=== PATIENT | male | born 1995 | race Caucasian/White ===

== ENCOUNTER 2024-04-06 15:08 | Observation (INO) | payer MEDICAID, SELFPAY ==
[2024-04-06 15:09] VITALS: BP 117/83; PULSE 124; RESP 20; TEMP 35.9; O2SAT 98; BMI 23.4
--- NOTE | 2024-04-06 15:16 | EDS_ITS ---
HPI History of Present Illness Chief Complaint: Substance Abuse Informant: patient Onset/Context/Timing Onset: - (Years of alcohol abuse and methamphetamine abuse.) Context: Gradual Onset Timing: Continuous Current Severity: Moderate Maximum Severity: Moderate Narrative Narrative: 28-year-old male no seen past medical history other than substance abuse. He has never gone through detox before. He drinks 12-24 beers a day. And is using methamphetamine. Denies any IV drug abuse No recent illness. Occasionally has nausea and vomiting. Prior similar symptoms: Yes Recent Illness/Hospitalization: No PFSH PFS Medical History Tobacco use Methamphetamine abuse Alcohol abuse Anxiety and depression Home Medications ?Medication ?Instructions ?Recorded ?Last Taken ?Type ibuprofen 200 mg tablet (Advil) 200 mg PO Q6H PRN headache 04/06/24 Unknown History Allergy/AdvReac Type Severity Reaction Status Date / Time No Known Allergies Allergy Verified 04/06/24 15:09 Family History (Updated 04/06/24 @ 16:[address] Stephanie Alcantar MD) Grandfather Alcohol abuse Maternal grandfather. Alcoholic cirrhosis Grandmother Cancer Maternal grandmother, unclear type. Mother No problems noted. Father No problems noted. Surgical History (Updated 04/06/24 @ 16:[address] Stephanie Alcantar MD) History of dental surgery Social History (Updated 04/06/24 @ 16:[address] Stephanie Alcantar MD) household members: family Smoking Status: Current every day smoker tobacco type: cigarettes Smoking packs per day: 0.75 Smoking cigarettes per day: 15.0 alcohol intake: current alcohol intake frequency: 3 or more drinks per day Alcohol type: beer and hard liquor details: 15-25 beers daily, 1/2 bottle fireball daily. substance use type: marijuana, methamphetamine and other details: Snorts, smokes meth. ROS ROS ED ROS Narrative Intermittent nausea and vomiting. Review of Systems ROS Unobtainable: Denies due to encephalopathy Constitutional Constitutional ED: Denies chills or fever(s) Eyes Eyes: Denies blurry vision ENT ENT ED: Denies ear pain Cardiovascular Cardiovascular: Denies chest pain or palpitations Respiratory/Chest Respiratory/Chest: Denies cough, dyspnea or dyspnea on exertion Gastrointestinal Gastrointestinal: Reports nausea and vomiting; Denies abdominal pain, constipation, diarrhea or melena Genitourinary Genitourinary ED: Denies dysuria Musculoskeletal Musculoskeletal: Denies arthralgias or back pain Integumentary Denies abscess Neurologic Neurologic: Denies headache(s) Psychiatric Psychiatric: Denies anxiety or depression Endocrine Endocrinology: Denies cold intolerance Hematologic/Lymphatic Hematologic/Lymphatic: Denies easy bleeding, easy bruising or lymphadenopathy Allergic/Immunologic Allergic/Immunologic ED: Denies mouth swelling, tongue swelling or urticaria EXAM Physical Exam Narrative Exam Narrative: Well-appearing 28-year-old male vital signs stable afebrile. H EENT exam unremarkable. Neck nontender. Lungs clear to auscultation. Heart regular rhythm rate about 110 no murmur. Abdomen soft nontender. Normal bowel sounds no peritoneal signs. Back nontender. Neurologically patient is awake alert answering questions following commands. Benign exam. Medically cleared. Const Vital Signs: 04/06/24 15:09 Temperature 96.7 F L Temperature Source Temporal Pulse Rate 124 H Respiratory Rate 20 H Blood Pressure 117/83 H Blood Pressure Mean 94 Pulse Ox 98 Oxygen Delivery Method Room Air Positive well nourished and well developed; Negative for obese, cachectic, contractures or unkempt General Appearance ED: well developed and NAD; Negative for unkempt, cachectic, contractures or pallor Nutritional Appearance: Negative for cachectic or obese HEENT Reports moist mucous membranes; Denies dry mucous membranes atraumatic; Negative for trauma or tenderness Mouth ED: No dry mucous membranes Mouth: No dry mucous membranes Eyes PERRL and EOMs intact bilaterally General Eye ED: Negative for pale conjunctiva or scleral icterus Neck no lymphadenopathy, supple and no JVD Thyroid: Negative for tender or other Lymph Lymphatic: no lymphadenopathy noted Chest Wall inspection of chest normal and palpation of chest normal Chest: Negative for other Resp normal respiratory effort and clear to auscultation bilaterally Effort and Inspection: Negative for retractions or pain with movement Auscultation: Negative for rales, rhonchi or wheezes Cardio regular rhythm, S1 normal heart sound, S2 normal heart sound and no murmurs; Negative for regular rate Rate: tachycardic Rhythm: Negative for abnormal rhythm Bruits: Negative for other GI soft to palpation, non-tender, non-distended and no masses Inspection: Negative for abdominal distention Palpation: Negative for tender or guarding Back/Spine no CVA tenderness General Back: Negative for CVA tenderness Cervical Spine: Negative for cervical spine tenderness Thoracic Spine / Upper Back: Negative for thoracic spinal tenderness Lumbar Spine / Lower Back: Negative for lumbar spinal tenderness Coccyx: Negative for swelling Extremity General Extremety ED: Negative for edema or tenderness General Extremity: Negative for edema Neuro oriented x3 and CN's II-XII intact bilaterally Sensorium / Orientation: alert, oriented to person, oriented to place and oriented to time; Negative for confused, lethargic or stuporous Speech: speech normal Motor Exam: strength 5/5 throughout Psych mental status grossly normal and thought process normal Appearance: Negative for unkempt Attitude: No belligerent, No agitated and No aggressive Mood & Affect: Negative for depressed, anxious or tearful Skin General Skin Exam: Negative for jaundice or pallor Lesions: no lesions Rashes: no rashes MDM MDM MDM Narrative Medical decision making narrative: 28-year-old male methamphetamine and alcohol abuse requesting detox. Medically is cleared. Speak to the hospitalist for admission to the detox unit. History & Record Review Discussion w/independent historian: Patient Lab Data Attestation: I reviewed the patient's lab results. Lab results narrative: Chemistries unremarkable. Liver enzymes unremarkable. Alcohol level 59. Tox screen and CBC pending. Is a be evaluated by the hospitalist. Discharge Plan Dx/Rx/DC Orders Clinical Impression: Alcohol abuse, Methamphetamine abuse, Desire for detoxification Disposition Disposition: Acute Care Hospital [facility]
--- NOTE | 2024-04-06 15:49 | PCM.HP.STD ---
HPI - General General Date of Admission: 04/06/24 Date of Service: 04/06/24 Chief Complaint: EtOH withdrawal. HPI Narrative The patient is a 28 y/o M w/ PMHx: Untreated Anxiety and Depression, EtOH abuse (12-24 beers daily, occasional fireball 1/2 bottle), Polysubstance abuse (Methamphetamine) who presents to the [facility] on 04/06/24 w/ noted mild acute EtOH withdrawal starting, onset starting in the late afternoon on day of presentation following last EtOH intake earlier in the day and a beer prior to presentation. He is currently tachycardic with mild nausea, notes occasional emesis, mildly tremulous. He notes normally he would have drank more but did decrease his level today. When patient uses methamphetamine he notes snorting or smoking often daily. He also notes usage of cannabis ingested and smoked. He was clean from methamphetamine 06/02/21 and ~ 6 months following started drinking EtOH which became more heavy and has been since. He unforutnately ~ 1 year and 8 months following his clean status started using methamphetamine again. Patient interested in attaining sober status. In the ED work-up included T96.7, heart rate 124, BP 117/83, respiratory rate 20, 98% on room air, pending CBC, CMP, ethyl alcohol level and urine drug screen upon requested evaluation of patient. [facility] Medical History Tobacco use Methamphetamine abuse Alcohol abuse Anxiety and depression Home Medications ?Medication ?Instructions ?Recorded ?Last Taken ?Type ibuprofen 200 mg tablet (Advil) 200 mg PO Q6H PRN headache 04/06/24 Unknown History Allergy/AdvReac Type Severity Reaction Status Date / Time No Known Allergies Allergy Verified 04/06/24 15:09 Family History (Updated 04/06/24 @ 16:[address] Stephanie Alcantar MD) Grandfather Alcohol abuse Maternal grandfather. Alcoholic cirrhosis Grandmother Cancer Maternal grandmother, unclear type. Mother No problems noted. Father No problems noted. Surgical History (Updated 04/06/24 @ 16:[address] Stephanie Alcantar MD) History of dental surgery Social History (Updated 04/06/24 @ 16:[address] Stephanie Alcantar MD) household members: family Smoking Status: Current every day smoker tobacco type: cigarettes Smoking packs per day: 0.75 Smoking cigarettes per day: 15.0 alcohol intake: current alcohol intake frequency: 3 or more drinks per day Alcohol type: beer and hard liquor details: 15-25 beers daily, 1/2 bottle fireball daily. substance use type: marijuana, methamphetamine and other details: Snorts, smokes meth. ROS ROS Narrative Admission Review of Systems: CONSTITUTIONAL: No weight loss, fever, chills, + weakness or fatigue. HEENT: Eyes: No visual loss, blurred vision, double vision or yellow sclerae. Ears, Nose, Throat: No hearing loss, sneezing, congestion, runny nose or sore throat. SKIN: No rash or itching, lesions, wounds. CARDIOVASCULAR: No chest pain, chest pressure or chest discomfort, palpitations, edema, orthopnea, syncopal events. RESPIRATORY: No shortness of breath, cough or sputum, wheezing, hemoptysis. GASTROINTESTINAL: + Nausea with bouts of emesis during withdrawal. No diarrhea, abdominal pain, melena, BRBPR. GENITOURINARY: No dysuria, frequency, urgency or retention. NEUROLOGICAL: + Mild tremors. No headache, dizziness, syncope, paralysis, ataxia, numbness or tingling in the extremities, focal weakness, change in bowel or bladder control, seizure. MUSCULOSKELETAL: No muscle, back pain, joint pain or stiffness. HEMATOLOGIC: No anemia, bleeding or bruising. LYMPHATICS: No enlarged nodes. No history of splenectomy. PSYCHIATRIC: + History of anxiety and depression. ENDOCRINOLOGIC: No reports of sweating, cold or heat intolerance. No polyuria or polydipsia. ALLERGIES: No history of asthma, hives, eczema or rhinitis. Vital Signs Vital Signs Vital Signs: 04/06/24 15:09 Temperature 96.7 F L Temperature Source Temporal Pulse Rate 124 H Respiratory Rate 20 H Blood Pressure 117/83 H Blood Pressure Mean 94 Pulse Ox 98 Oxygen Delivery Method Room Air Weight Weight: 163 lb 8 oz Body Mass Index (BMI) 23.4 Physical Exam Narrative Physical Examination: General: Awake, alert, oriented x 3 and cooperative, seated upright in the ED bed, fatigued appearing. Skin: Normal color, normal turgor, no icterus, no cyanosis except occasional abrasion. HEENT: AT/NC, EOMI, PERRLA, moderately dry MM, no carotid bruits or JVD noted. Lungs: CTA bilaterally, moderate effort, mild decrease BL bases, no rales, ronchi or wheezing. Heart: Tachycardic with regular rhythm; no gallop, rub audible. Abdomen: Soft, NTTP, ND, mildly hyperactive BS, no appreciated HSM. Extremities: No cyanosis, clubbing, or edema. Neurological: Patient awake, alert, oriented as noted, cognitive function intact; pupils equally reactive to light and accommodation, cranial nerves grossly normal, moving all 4 extremities, no focal deficits, strength preserved, mildly tremulous. Psychiatric: Affect appears fatigued, no acute evidence of depressive or anxiety feelings but does admit to underlying history with no treatment previously. Results Lab / Micro Data 04/06/24 16:15 04/06/24 16:05 Assessment & Plan Assessment/Plan (1) Desire for detoxification: PLAN: Plan The patient is a 28 y/o M w/ PMHx: Untreated Anxiety and Depression, EtOH abuse (12-24 beers daily, occasional fireball 1/2 bottle), Polysubstance abuse (Methamphetamine) who presents to the [facility] on 04/06/24 w/ noted mild acute EtOH withdrawal starting, onset starting in the late afternoon on day of presentation following last EtOH intake earlier in the day and a beer prior to presentation. #1. Acute EtOH Withdrawal: Will admit to MS, routine labs obtained in the ED upon presentation and pending upon evaluation. Given interest in sobriety, will initiate and continue on protocol with taper course of Phenobarbital, as needed gabapentin, Catapres, Bentyl, Vistaril, IV fluids, IV antiemetics, Tylenol as needed for pain. Will consult Case management for assistance for transition to next level of rehabilitation care. Mag, phos pending. Maintain on CIWA protocol concurrently. #2. Polysubstance Abuse: Given polysubstance abuse although does deny IV drug abuse to be cautious will obtain HIV, hepatitis panel as well as syphilis. Strongly encourage methamphetamine discontinuation and clean status. Case management and 180 consulted as noted. #3. Anxiety and Depression, Untreated: Notes longstanding history with no treatment or counseling. 180 and CM consulted, would benefit from more aggressive assessment and potentially medication given likely contributing to #1 and #2. #4. Tobacco Abuse: Encouraged cessation, inpatient consultation per RT, NR if desired. #5. DVT prophylaxis: Low risk. Charges/Coding Visit Charges Inpatient E&M: 31440 Init Hosp L2
[2024-04-06 16:54] LABS: ALB/GLOB Ratio 1.1 RATIO (0.9-2.4); AST(SGOT) 31 U/L (15-37); Alanine Aminotransfer ALT/SGPT 14 U/L (16-61); Albumin, Serum 3.8 g/dL (3.2-5.0); Alkaline Phosphatase 85 U/L (45-117); Anion Gap 5 (5-15); BUN 15 mg/dL (7-18); BUN/Creat Ratio 14.4 RATIO (10-20); Chloride 109 mmol/L (98-107); Creatinine, Serum 1.04 mg/dL (0.70-1.30); EST Glomerular Filtration Rate 91 mL/min (>60); Est Glom Filt Rate - Afr Amer 111 mL/min (>60); Estimated Creatinine Clearance 111.14 ml/min; Globulin 3.5 g/dL (2.2-4.2); Glucose 114 mg/dL (74-106); Magnesium 2.2 mg/dL (1.6-2.6); Protein, Total 7.3 g/dL (6.4-8.2); Sodium Level 137 mmol/L (136-145)
[2024-04-06 17:09] LABS: Phosphorus 2.7 mg/dL (2.5-4.9)
[2024-04-06 18:14] VITALS: BP 117/83; PULSE 98; RESP 18; TEMP 36.6; O2SAT 98
[2024-04-06 18:22] VITALS: BMI 22.7
[2024-04-06 18:29] VITALS: BP 110/71; PULSE 82; RESP 18; TEMP 36.9; O2SAT 98
[2024-04-06 18:47] LABS: Hematocrit 45.5 % (40-54); Hemoglobin 15.5 g/dL (13.0-16.5); Mean Corp Hgb Conc 34.1 g/dL (32-36); Mean Corpuscular Hgb 29.2 pg (27.0-32.0); Mean Corpuscular Volume 85.8 fL (80-94); Mean Platelet Vol. 10.3 fl (6.2-12.0); Platelet Count 261 K/mm3 (150-450); RBC Distribution Width CV 12.4 % (11.6-14.6); RBC Distribution Width SD 38.7 fl (35.1-43.9)
[2024-04-06] MEDS: Lactated Ringers 1,000 ML 125 ML IV (18:49)
[2024-04-06] MEDS: Phenobarbital 32.4 MG Tablet 64.8 MG PO ×2 (18:49→22:20)
[2024-04-06 19:11] LABS: HIV - WCH Non-Reactive (Nonreactive); Hepatitis B Surface Antibody Reactive; Hepatitis B Surface Antigen Non-Reactive (Nonreactive); Syphilis Antibodies Non-reactive
[2024-04-06 19:48] VITALS: BP 118/72; PULSE 88; RESP 16; TEMP 36.7; O2SAT 100
[2024-04-06 20:47] LABS: Hepatitis C Antibody Non-Reactive (Nonreactive)
[2024-04-07 00:29] VITALS: BP 114/72; PULSE 77; RESP 16; TEMP 36.5; O2SAT 100
[2024-04-07] MEDS: Phenobarbital 32.4 MG Tablet 64.8 MG PO ×3 (02:57→11:21)
[2024-04-07 04:46] VITALS: BP 125/71; PULSE 79; RESP 16; TEMP 36.6; O2SAT 97
[2024-04-07] MEDS: Ondansetron 8 MG Tablet PO (06:19)
[2024-04-07] MEDS: Thiamine Hydrochloride 100 MG Tablet PO (07:44)
[2024-04-07] MEDS: Multivitamins,Ther W-Minerals Tablet 1 TABLET PO (07:44)
[2024-04-07] MEDS: Folic Acid 1 MG Tablet PO (07:44)
--- NOTE | 2024-04-07 09:27 | PCM.PROGNOTE ---
Subjective Subjective Patient seen and examined. He was lying comfortably in bed. He had no active complaints. He had an uneventful night. He denies any alcohol withdrawal symptoms. Review of systems otherwise negative. Objective Data Objective Data Vital Signs: Vital Signs Temp Pulse Resp BP Pulse Ox O2 Del Method 97.9 F 79 16 125/71 H 97 Room Air 04/07/24 04:46 04/07/24 04:46 04/07/24 04:46 04/07/24 04:46 04/07/24 04:46 04/07/24 08:14 Oxygen Delivery Method Room Air Weight: 158 lb 11.725 oz Body Mass Index (BMI) 22.7 Intake & Output: Intake and Output for Last 24 Hours 04/05/24 04/06/24 04/07/24 23:59 23:59 23:59 Intake Total 1900 / 1900 Balance 1900 / 1900 Lab / Micro Data 04/06/24 16:15 04/06/24 16:05 Labs: Laboratory Results - last 24 hr 04/06/24 16:05: WBC Cancelled, Corrected WBC Cancelled, RBC Cancelled, Hgb Cancelled, Hct Cancelled, MCV Cancelled, MCH Cancelled, MCHC Cancelled, RDW Std Deviation Cancelled, RDW Coeff of Olivier Cancelled, Plt Count Cancelled, MPV Cancelled, Diff Path Review Cancelled, Sodium 137, Potassium 5.0, Chloride 109 H, Carbon Dioxide 23.0, Anion Gap 5, BUN 15, Creatinine 1.04, Estim Creat Clear Calc 111.14, Est GFR (MDRD) Af Amer 111, Est GFR (MDRD) Non-Af 91, BUN/Creatinine Ratio 14.4, Glucose 114 H, Calcium 9.0, Magnesium 2.2, Total Bilirubin 0.30, AST 31, ALT 14 L, Alkaline Phosphatase 85, Total Protein 7.3, Albumin 3.8, Globulin 3.5, Albumin/Globulin Ratio 1.1 04/06/24 16:15: WBC 9.0, RBC 5.30, Hgb 15.5, Hct 45.5, MCV 85.8, MCH 29.2, MCHC 34.1, RDW Std Deviation 38.7, RDW Coeff of Olivier 12.4, Plt Count 261, MPV 10.3, Phosphorus 2.7, Ethyl Alcohol 59.0, Syphilis Total Ab Non-reactive, Hep Bs Antigen Non-Reactive, Hep Bs Antibody Reactive, Hepatitis C Antibody Non-Reactive, HIV 1&2 Antibody Non-Reactive Physical Exam Const alert, oriented x3 and no apparent distress General Appearance: cooperative and well developed HEENT normocephalic, head/scalp atraumatic, moist oral mucous membranes and oropharynx normal Eyes PERRL and EOMs intact bilaterally Neck no lymphadenopathy, supple and no JVD Lymph Lymphatic: no lymphadenopathy noted and no lymphedema noted Resp normal respiratory effort, normal air movement and clear to auscultation bilaterally Cardio regular rate, regular rhythm, S1 normal heart sound, S2 normal heart sound and no murmurs GI normal to inspection, nondistended, normoactive bowel sounds, soft to palpation, non-tender and non-distended Extremity normal capillary refill, no clubbing, cyanosis or edema and no calf tenderness General Extremity: no tenderness to palpation of joints or extremities Skin General Skin Exam: no breakdown and turgor normal Neuro CN's II-XII intact bilaterally, no focal motor deficits, no sensory deficits noted and deep tendon reflexes 2+ bilaterally Motor Exam: strength 5/5 throughout and general weakness Psych thought process normal, cooperative and affect normal Appearance: appropriate Assessment & Plan Assessment/Plan (1) Desire for detoxification: PLAN: Plan #Acute alcohol withdrawal Alcohol withdrawal protocol with phenobarbital. On thiamine, folic acid and Multi-Anastacia. Adjunctive meds for symptomatic relief. monitor CIWA score # Polysubstance abuse: Also uses methamphetamine. Counseled to quit. HIV and syphilis screen nonreactive. Hepatitis B surface antibody reactive but hepatitis B antigen nonreactive. #Anxiety and depression: Fluoxetine medication. Follow-up with his PCP for evaluation and initiation of treatment as needed. #Nicotine dependence: Counseled to quit. Nicotine patch 81 mg daily. DVT prophylaxis; low risk. encouraged to ambulate. Charges/Coding Visit Charges Inpatient E&M: 17959 Subs Hosp L2
[2024-04-07 10:45] VITALS: BP 108/77; PULSE 78; RESP 16; TEMP 36.8; O2SAT 100
--- NOTE | 2024-04-07 11:21 | ADDICTION ---
Met w/pt to complete RAMP assessments. Pt answered all questions appropriately and was A&Ox4. Pt reports that he is not having any WD symptoms. He has residential treatment already set up at [facility] and a ride has been set up for Thursday @9:00/9:30am.
--- NOTE | 2024-04-07 11:27 | CASEMGMT ---
Social Work Pt going to [facility] tomorrow morning. The staff there will follow up w/pt regarding Medicaid and financial resources as needed. EVELIO High
--- NOTE | 2024-04-07 15:13 | NURSING ---
Pt refused phenobarbital dose at this time was education on the importance of taking this medication and the side effects of not take it. Pt verbalized understanding the information given.
[2024-04-07 18:00] VITALS: BP 116/70; PULSE 76; RESP 16; TEMP 36.7; O2SAT 100
[2024-04-07 20:34] VITALS: BP 115/68; PULSE 70; RESP 17; TEMP 36.6; O2SAT 98
[2024-04-08 03:59] VITALS: BP 106/64; PULSE 64; RESP 16; TEMP 36.3; O2SAT 98
[2024-04-08 07:46] VITALS: BP 118/84; PULSE 60; RESP 16; TEMP 36.7; O2SAT 100
--- NOTE | 2024-04-08 07:55 | DS.PCM_ITS ---
Providers Date of Admission: 04/06/24 Date of Discharge: 04/08/24 Primary Care Physician: No Primary Care Phys Reason For Visit: ETOH WITHDRAWAL Diagnosis Discharge Diagnosis (1) Desire for detoxification: Status: Acute Plan #Acute alcohol withdrawal * Alcohol withdrawal protocol with phenobarbital. * On thiamine, folic acid and Multi-Anastacia. Adjunctive meds for symptomatic relief. * monitor CIWA score * # Polysubstance abuse: Also uses methamphetamine. Counseled to quit. HIV and syphilis screen nonreactive. Hepatitis B surface antibody reactive but hepatitis B antigen nonreactive. #Anxiety and depression: Fluoxetine medication. Follow-up with his PCP for evaluation and initiation of treatment as needed. #Nicotine dependence: Counseled to quit. Nicotine patch 81 mg daily. DVT prophylaxis; low risk. encouraged to ambulate. Medications at Discharge Home Medications ibuprofen 200 mg tablet (Advil) 200 mg PO Q6H PRN headache 04/06/24 Hospital Course Operations None Procedures None Summary of Care Provided Minutes Spent on Discharge: 45 Hospital Course: Patient is a 28-year-old male with a past medical history as outlined including alcohol and methamphetamine abuse who was admitted through the ED on 04/06/2024 for acute alcohol withdrawal. His symptoms all started on the day of presentation. He had last taken alcohol on the day of presentation. He complained of tachycardia with nausea and tremors. He also said he used methamphetamine by snorting or smoking daily. He also used cannabis. In the ED he was tachycardic with heart rate of 124 but vitals were otherwise stable. Labs were unremarkable and serum alcohol level was 59. He was admitted and managed for acute alcohol withdrawal and started on alcohol withdrawal protocol with phenobarbital. In light of his polysubstance abuse, hepatitis B and C and HIV as well as syphilis test were ordered. Syphilis and HIV test were nonreactive as well as hepatitis C. Hepatitis B antibody was reactive but his surface antigen was nonreactive. Patient tolerated the detox process. He was agreeable with going to an inpatient facility to help with his detox. He got a bed at [facility] and was discharged on 04/08/2024. Patient seen and examined prior to discharge. He had no active complaints and had an uneventful night. Review of systems otherwise negative. Labs and vitals reviewed. Home medication reviewed and reconciled. Physical Exam Const alert, oriented x3 and no apparent distress General Appearance: cooperative, comfortable, well kempt and well developed HEENT normocephalic, head/scalp atraumatic, hearing grossly normal bilaterally, moist oral mucous membranes and oropharynx normal Mouth: oral and palatal mucosa normal Eyes PERRL and EOMs intact bilaterally Neck no lymphadenopathy, supple and no JVD Lymph Lymphatic: no lymphadenopathy noted and no lymphedema noted Resp normal respiratory effort, normal air movement and clear to auscultation bilaterally Cardio regular rate, regular rhythm, S1 normal heart sound, S2 normal heart sound and no murmurs GI normal to inspection, nondistended, normoactive bowel sounds, soft to palpation, non-tender and non-distended Extremity normal to inspection, full ROM, normal capillary refill, no clubbing, cyanosis or edema and no calf tenderness General Extremity: no tenderness to palpation of joints or extremities Skin no rashes or lesions noted General Skin Exam: no breakdown and turgor normal Neuro oriented x3, CN's II-XII intact bilaterally, moves all extremities, no focal motor deficits, no sensory deficits noted and deep tendon reflexes 2+ bilaterally Sensorium / Orientation: awake Motor Exam: strength 5/5 throughout and general weakness Psych thought process normal, cooperative and affect normal Appearance: appropriate Weight / BMI Weight Weight: 158 lb 11.725 oz Body Mass Index (BMI) 22.7 ABG / Lab / Microbiology Data 04/06/24 16:15 04/06/24 16:05 D/C Instructions Discharge Diet: No restrictions Discharge Activity: Return to Normal Activity Weight Bearing Status: Weight bearing as tolerated Call your doctor if you observe: Fever of 101 or Higher, Shortness of breath, Dizziness, Swelling in the ankles and Chest pain Meaningful Use Info Meaningful Use Meaningful Use Diagnoses (Choose all that apply): None applicable Ischemic Stroke Statin Dosing Therapy Reference: STATIN DOSE THERAPY REFERENCE: * Patients > 75 years receive moderate or high dose statin therapy. * Patients 75 years or YOUNGER should receive HIGH intensity statin dose unless contraindicated. You will be required to document reason for non-treatment if statin daily dose does not meet guidelines. HIGH DOSE STATIN THERAPY DAILY Atorvastatin > than or = to 40 mg Rosuvastatin > than or = to 20 mg Amlodipine + Atorvastatin > than or = to 2.5/40 mg Ezetimibe + Simvastatin 10/80 mg Simvastatin 80mg Discharge Plan Admission Admit Date/Time: 04/06/24 15:49 Primary Reason for Your Visit: acute alcohol withdrawal Attending Provider: Mary Ellen Burns Primary Care Provider: Care Physician,No Primary Consulting Providers: Stephanie Alcantar Instructions Patient Instructions: Alcohol Withdrawal: What to Expect, ED Withdrawal Alcohol Discharge Orders/Prescriptions Prescriptions: Continued ibuprofen [Advil] 200 mg tablet 200 mg PO Q6H PRN (Reason: headache) Referrals / Follow Up: Care Physician,No Primary [Primary Care Provider] - Disposition Disposition (needs filled in before D/C Order can be placed): DC/Tx to Another Type of HCF Charges/Coding Visit Charges Inpatient E&M: 60372 Disch Hosp >30min
--- NOTE | 2024-04-08 07:55 | DCINST_ITS ---
Discharge Instructions Diet Discharge Diet: No restrictions Activity Discharge Activity: Return to Normal Activity Weight Bearing Status: Weight bearing as tolerated Dressing / Incision Call your doctor if you observe: Fever of 101 or Higher, Shortness of breath, Dizziness, Swelling in the ankles and Chest pain Follow Up Care Test Results: Test results from this visit will be discussed in further detail at your follow- up appointment, if applicable. Discharge Plan Admission Admit Date/Time: 04/06/24 15:49 Primary Reason for Your Visit: acute alcohol withdrawal Attending Provider: Mary Ellen Burns Primary Care Provider: Care Physician,Emilee Primary Consulting Providers: Stephanie Alcantar Instructions Patient Instructions: Alcohol Withdrawal: What to Expect, ED Withdrawal Alcohol Discharge Orders/Prescriptions Prescriptions: Continued ibuprofen [Advil] 200 mg tablet 200 mg PO Q6H PRN (Reason: headache) Referrals / Follow Up: Care Physician,Emilee Primary [Primary Care Provider] - Disposition Disposition (needs filled in before D/C Order can be placed): DC/Tx to Another Type of HCF
[2024-04-08 08:57] VITALS: BP 121/79; PULSE 77; RESP 14; TEMP 36.6; O2SAT 100
== END 2024-04-08 09:35 | disposition other institution (70) | DRG 897 ==
LOC: ED 16:03 → MS3 04-07 07:06
PROVIDERS: Admitting Provider Family Medicine; Emergency Provider Emergency Medicine; Referring Provider Family Medicine; Visit Provider Student in an Organized Health Care Education/Training Program
DX: F10.139 Alcohol abuse with withdrawal, unspecified (principal); F15.10 Other stimulant abuse, uncomplicated; F12.90 Cannabis use, unspecified, uncomplicated; F32.A Depression, unspecified; F17.210 Nicotine dependence, cigarettes, uncomplicated; F41.9 Anxiety disorder, unspecified; Y90.2 Blood alcohol level of 40-59 mg/100 ml
CPT/HCPCS: G0378 ×2; 80053; 82077; 83735; 84100; 85027; 86703; 86706; 86780; 86803; 87340; 96360; 96361; 99221; 99285; 99406; A4216